=== PATIENT | female | born 1955 | race Caucasian/White ===

== ENCOUNTER 2016-03-23 13:38 | Emergency (ER) | payer BC ==
[~2016-03-23] VITALS: Ht 170.2 cm; Wt 67.1 kg
[2016-03-23 14:06] VITALS: BP 144/86
[2016-03-23] MEDS ORDERED: ALBUTEROL FS 2.5 MG/3 ML VIAL.NEB NEB ONE (14:30)
[2016-03-23] MEDS ORDERED: ALBUTEROL FS 2.5 MG/3 ML VIAL.NEB ONE (15:18)
== END 2016-03-23 16:36 | disposition home or self-care (01) ==
LOC: ER 13:39
DX: J20.9 Acute bronchitis, unspecified (principal); I10 Essential (primary) hypertension; Z98.890 Other specified postprocedural states
CPT/HCPCS: 71020; 94640; 99284; A4606; Z7610